=== PATIENT | male | born 1950 | race Caucasian/White ===

== ENCOUNTER 2018-07-10 11:02 | Inpatient (IN) | payer MEDICARE ==
[~2018-07-10] VITALS: Ht 170.2 cm; Wt 81.7 kg
[2018-07-10 11:40] LABS: Hematocrit 43.7 % (37.0-53.0); Hemoglobin 14.5 g/dL (13.5-17.5); Mean Corpuscular HGB 30.9 pg (26.0-34.0); Mean Corpuscular HGB Conc 33.2 g/dL (31.5-36.5); Mean Corpuscular Volume 93 fL (80-100); Mean Platelet Volume 10.1 fL (9.1-12.4); Platelet Count 398 K/mm3 (150-400); RDW Coefficient Variation 11.9 % (11.7-14.2); RDW Standard Deviation 41.2 fL (35.1-46.3); White Blood Cell Count 23.98 K/mm3 (4.00-11.30)
[2018-07-10] MEDS ORDERED: Zocor20 MG PO (11:43)
[2018-07-10] MEDS ORDERED: TRAZ150T57 PO (11:43)
[2018-07-10] MEDS ORDERED: Prinivil10 MG PO (11:43)
[2018-07-10] MEDS ORDERED: METF500 PO (11:43)
[2018-07-10] MEDS ORDERED: Budeprion Xl300 MG PO (11:44)
[2018-07-10] MEDS ORDERED: ALL DAY ALLERGY10 M1 PO (11:45)
[2018-07-10] MEDS ORDERED: BACL10 PO ×2 (11:45→14:18)
[2018-07-10 11:46] LABS: Alanine Aminotransfer (ALT/SGP 26 U/L (12-78); Albumin, Blood 2.5 g/dL (3.4-5.0); Albumin/Globulin Ratio 0.5 (0.8-1.8); Alk Phos 85 U/L (50-136); Anion Gap 21 mmol/L (6-16); Aspartate Aminotrans (AST/SGOT 14 U/L (12-37); Bilirubin, Total 0.9 mg/dL (0.1-1.0); Blood Urea Nitrogen 20 mg/dL (8-24); Bun/Creatinine Ratio 21.2 (12.0-20.0); CO2, Blood 11 mmol/L (21-32); Calcium, Blood 8.9 mg/dL (8.5-10.1); Chloride, Blood 100 mmol/L (98-108); Creatinine, Blood 0.94 mg/dL (0.60-1.20); Globulin, Blood 5.3 g/dL (2.2-4.0); Glomerular Filtration Rate >60 (60-); Glucose, Blood 452 mg/dL (70-99); Potassium, Blood 4.2 mmol/L (3.5-5.5); Sodium, Blood 132 mmol/L (136-145); Total Protein, Blood 7.8 g/dL (6.4-8.2); Troponin I <0.015 ng/mL (0.000-0.040)
[2018-07-10] MEDS ORDERED: TAMS.4ER PO ×2 (11:46→14:25)
[2018-07-10] MEDS ORDERED: GLIP5 PO (11:47)
[2018-07-10] MEDS ORDERED: Hydroxyzine HCl50 MG PO (11:48)
[2018-07-10] MEDS ORDERED: Coughtab 400400 MG PO (11:48)
[2018-07-10] MEDS ORDERED: ACET325 PO (13:58)
[2018-07-10] MEDS ORDERED: ALBU90OI61 INH (14:17)
[2018-07-10] MEDS ORDERED: BUPR150T2 PO (14:19)
[2018-07-10] MEDS ORDERED: Vitamin D2000 UNIT PO (14:20)
[2018-07-10] MEDS ORDERED: LIDO700A20 TOP (14:21)
[2018-07-10] MEDS ORDERED: LOSA25 PO (14:22)
[2018-07-10] MEDS ORDERED: OMEPRAZOLE MAGN20 MG PO (14:23)
[2018-07-10] MEDS ORDERED: Simvastatin20 MG PO (14:25)
[2018-07-10] MEDS ORDERED: TRAZ50 PO (14:26)
[2018-07-10] MEDS ORDERED: THERA1 EACH PO (14:30)
[2018-07-10] MEDS ORDERED: POTASSIUM GLUCO90 MG PO (14:32)
[2018-07-10 23:38] LABS: pH Blood Arterial 7.08 (7.35-7.45)
[2018-07-10 23:39] LABS: PCO2 Arterial 15.2 mmHg (35-45); PO2 Arterial 96.6 mmHg (80-100)
--- NOTE | 2018-07-11 00:55 | NUR ---
ASSUMED CARE OF PT FROM ED @ 2009. PT TO ROOM ON 2L NC, SATS >90%. PT ABLE TO AMBULATE INTO PCU BED WITH LITTLE ASSISTANCE FROM STAFF. PT ASKS FOR BREATHING TREATMENT, RT TO ROOM AND ADMINISTERS TREATMENT. PT BEGINS TO HAVE SEVERE PAIN IN CHEST, LOWER RIGHT. PT CLUTCHING CHEST, STATES THAT THIS PAIN IS MUCH WORSE THAN BEFORE. PT APPEARS EXTREMELY ANXIOUS, SATS NOW 85%, NC O2 TITRATED TO 8L NC. SPO2 TEETERING AT 90%. EKG ORDERED AND COMPLETED, CHARGE NURSE HELEN REVIEWED EKG STRIP, DOES NOT SEE EVIDENCE OF ST ELEVATION. NITRO GIVEN X2 POST EKG PER EMAR BEFORE HELEN REVIEWED EKG. PT STATES THAT MEDICATION DID RELIEVE SOME PAIN. DR MORALEZ CALLED REGARDING PT'S PAIN AND RESPIRATORY STATUS. DR ROOT ORDER FOR 50MCG FENTANYLY, ADMINISTERED PER ORDER. THIS RELIEVES PT'S PAIN, PATIENT STATES PAIN DROPPING FROM 10/10 TO 3/10. PT ABLE TO SPEAK IN FULL SENTENCES WITH NURSE WHEREAS BEFORE, PATIENT COULD BARELY SPEAK R/T WORK OF BREATHING/PAIN. CBG COMPLETED, LEVEL >400. INSULIN GIVEN PER EMAR. DR PINO NOTIFIED. WITHIN 30MIN OF INITIAL FENTANYL DOSAGE, PTS PAIN RAISES BACK UP TO 10/10, PT HAVING EXTREME WORK OF BREATHING. DR MORALEZ CALLED REGARDING PAIN AND RESPIRATORY STATUS. PT'S LOWER EXTREMITIES BEGINNING TO MOTTLE, PT STATES THAT LEGS HAVE GONE NUMB. ANOTHER 25MCG FENTANYL GIVEN PER ORDER FROM KIRT. DR PINO TO ROOM VIA RECOMMENDATION FROM DR MORALEZ. ALVAREZ WITH BEDSIDE ULTRASOUND. PLACES ORDER FOR BIPAP/CPAP PROTOCOL, 0.5 MG ATIVAN IV NOW AND ANOTHER 0.5MG ATIVAN PRN X1 IF PT DOES NOT TOLERATE BIPAP. ALSO ORDERS 50MCG FENTANYL. ULTIMATELY, FULL 1MG ATIVAN GIVEN IV DUE TO PATIENTS EXTREME ANXIETY AND INTOLERANCE OF BIPAP. RT OBTAINS ABG PER ORDER. COMPLETES ULTRASOUND, STATES SEEING VERY LITTLE FLUID BUILDUP IN R LUNG. DR ROOT ORDER FOR CHEST CT WITH CONTRAST AND TRANSFER ORDER TO ICU. INSULIN DRIP ORDERED R/T BLOOD SUGARS ALONG WITH SODIUM BICARB R/T TO ABG VALUES. PT TAKEN TO CT, REPORT GIVEN TO ICU NURSE, PT BROUGHT STRAIGHT FROM CT TO ICU. ALL BELONGINGS BROUGHT TO ICU WITH PT ALONG WITH MEDICATIONS.
--- NOTE | 2018-07-11 01:32 | NUR ---
ADMISSION ASSESMENT COMPLETED TO BEST OF ABILITY AND KNOWLEDGE OF PT. PT'S ADMISSION SCREENING AND HEALTH HISTORY NOT COMPLETED. PT HAS REQUIRED HIGH ACUITY OF CARE R/T PAIN AND RESPIRATORY STATUS SINCE ADMISSION AND HAS CONTINUED TO REQUIRE THIS CONSTANT INTERVENTION UNTIL TRNAFERRING TO ICU. MAJORITY OF ASSESMENTS NOT COMPLETED DUE TO THIS. ICU NURSE AWARE OF THIS.
[2018-07-11 01:57] LABS: Hematocrit 43.2 % (37.0-53.0); Hemoglobin 14.2 g/dL (13.5-17.5); Mean Corpuscular HGB Conc 32.9 g/dL (31.5-36.5); Mean Corpuscular Volume 94 fL (80-100); Mean Platelet Volume 9.7 fL (9.1-12.4); Platelet Count 440 K/mm3 (150-400); RDW Coefficient Variation 12.2 % (11.7-14.2); RDW Standard Deviation 42.6 fL (35.1-46.3); Red Blood Cell Count 4.58 M/mm3 (4.30-5.90); White Blood Cell Count 38.16 K/mm3 (4.00-11.30)
[2018-07-11 02:17] LABS: Alanine Aminotransfer (ALT/SGP 29 U/L (12-78); Albumin, Blood 2.3 g/dL (3.4-5.0); Albumin/Globulin Ratio 0.4 (0.8-1.8); Alk Phos 85 U/L (50-136); Anion Gap 21 mmol/L (6-16); Aspartate Aminotrans (AST/SGOT 22 U/L (12-37); Bilirubin, Total 0.5 mg/dL (0.1-1.0); Blood Urea Nitrogen 25 mg/dL (8-24); Bun/Creatinine Ratio 25.1 (12.0-20.0); CO2, Blood 9 mmol/L (21-32); Calcium, Blood 8.9 mg/dL (8.5-10.1); Chloride, Blood 109 mmol/L (98-108); Globulin, Blood 5.4 g/dL (2.2-4.0); Glomerular Filtration Rate >60 (60-); Glucose, Blood 458 mg/dL (70-99); Potassium, Blood 4.7 mmol/L (3.5-5.5); Sodium, Blood 139 mmol/L (136-145); Total Protein, Blood 7.7 g/dL (6.4-8.2)
[2018-07-11 02:40] LABS: BAND PERCENT MAN 5 % (0-8); BASOPHILS PERCENT MAN 0 % (0-2); EOSINOPHILS PERCENT MAN 0 % (0-6); LYMPHOCYTES ABSOLUTE MAN 0.76 K/mm3 (0.84-5.20); LYMPHOCYTES PERCENT MAN 2 % (21-46); METAMYELOCYTE ABSOLUTE MAN 0.38 K/mm3 (0.00-0.00); METAMYELOCYTE PERCENT MAN 1 % (0-0); MONOCYTES PERCENT MAN 5 % (4-13); SEG NEUTROPHILS PERCENT MAN 87 % (41-73); TOTAL CELLS COUNTED 100
[2018-07-11 04:12] LABS: Source, Urine Catheter
[2018-07-11 04:13] LABS: Bilirubin, Urine Neg (Neg); Blood, Urine 4+ (Neg); Glucose Qualitative, Urine 4+ (Neg); Ketones, Urine 4+ (Neg); Leukocyte Esterase, Urine Neg (Neg); Nitrite, Urine Neg (Neg); Protein, Urine 2+ (Neg); Urobilinogen, Urine NORM (Normal)
[2018-07-11 04:14] LABS: Appearance, Urine Clear (Clear); Color, Urine Yellow (P-Yellow)
[2018-07-11 04:19] LABS: Amorphous Mod (0-Heavy); Bacteria Rare /hpf; Red Blood Cells, Urine Rare /hpf (0-2); Squamous Epithelial Cells Rare /hpf (Few); White Blood Cells, Urine Rare /hpf (0-5)
[2018-07-11 05:28] LABS: Adenovirus Not Detected (NOT DETECT); Bordetella pertussis Not Detected (NOT DETECT); Chlamydophila pneumoniae Not Detected (NOT DETECT); Coronavirus 229E Not Detected (NOT DETECT); Coronavirus HKU1 Not Detected (NOT DETECT); Coronavirus NL63 Not Detected (NOT DETECT); Coronavirus OC43 Not Detected (NOT DETECT); Human Metapneumovirus Not Detected (NOT DETECT); Human Rhinovirus/Enterovirus Not Detected (NOT DETECT); Influenza A Not Detected (NOT DETECT); Influenza A/2009-H1 Not Detected (NOT DETECT); Influenza A/H1 Not Detected (NOT DETECT); Influenza A/H3 Not Detected (NOT DETECT); Influenza B Not Detected (NOT DETECT); Mycoplasma pneumoniae Not Detected (NOT DETECT); Parainfluenza Virus 1 Not Detected (NOT DETECT); Parainfluenza Virus 2 Not Detected (NOT DETECT); Parainfluenza Virus 3 Not Detected (NOT DETECT); Parainfluenza Virus 4 Not Detected (NOT DETECT); Respiratory Syncytial Virus Not Detected (NOT DETECT)
--- NOTE | 2018-07-11 07:06 | NUR ---
PT HAS BEEN MOVED FROM BIPAP TO SC THIS AM. PT STATES HE IS FEELING MUCH BETTER THIS MORNING. DR BANSAL CAME BY TO SEE PT. PT CONTINUES ON INSULIN DRIP WHICH HAS BEEN LOWERED TO 4 UNITS PER HOUR. CONTINUING WITH Q 1 HOUR GLUCOSE CHECKS. PT HAS NOT BEEN ABLE TO EXPECTORATE ANY SPUTUM. REPORT GIVEN TO ONCOMING RN.
--- NOTE | 2018-07-11 07:15 | NUR ---
START OF SHIFT NOTE: PATIENT IS AWAKE, SITTING UP IN BED, ALERT AND ORIENTED, VISIBLE WORK BREATHING, USE OF ACCESSORY MUSCLES, FREQUENT COUGHING SPELLS, INSULIN DRIP AT 4 UNITS, AND BICARB INFUSING AT 100 CC/HR, LUNGS SOUNDS DIMINISHED WITH CRACKLES ON LEFT AND DIMINISHED BUT CLEAR ON RIGHT, HYPERACTIVE BOWEL TONES IN ALL FOUR QUADRANTS, SINUS TACHY, PATIENT USES URINAL TO VOID, PULSES PRESENT AND PALPABLE, NPO AT THIS TIME D/T INCREASED WORK OF BREATHING, CALL LIGHT IN REACH, WILL CONTINUE TO MONITOR.
[2018-07-11 08:20] LABS: BASOPHILS ABSOLUTE AUTO 0.18 K/mm3 (0.00-0.23); BASOPHILS PERCENT AUTO 0 % (0-2); EOSINOPHILS PERCENT AUTO 0 % (0-6); Hematocrit 45.5 % (37.0-53.0); Hemoglobin 14.4 g/dL (13.5-17.5); IMMATURE GRAN ABSOLUTE AUTO 0.81 K/mm3 (0.00-0.10); IMMATURE GRAN PERCENT AUTO 2 % (0-1); LYMPHOCYTES ABSOLUTE AUTO 1.54 K/mm3 (0.84-5.20); LYMPHOCYTES PERCENT AUTO 4 % (21-46); MONOCYTES ABSOLUTE AUTO 2.35 K/mm3 (0.16-1.47); MONOCYTES PERCENT AUTO 6 % (4-13); Mean Corpuscular HGB 30.6 pg (26.0-34.0); Mean Corpuscular HGB Conc 31.6 g/dL (31.5-36.5); Mean Platelet Volume 9.8 fL (9.1-12.4); NEUTROPHILS ABSOLUTE AUTO 35.72 K/mm3 (1.96-9.15); NEUTROPHILS PERCENT AUTO 88 % (41-73); Platelet Count 475 K/mm3 (150-400); RDW Coefficient Variation 12.3 % (11.7-14.2); RDW Standard Deviation 44.2 fL (35.1-46.3)
[2018-07-11 08:22] LABS: Mean Corpuscular Volume 97 fL (80-100)
[2018-07-11 09:00] LABS: Alanine Aminotransfer (ALT/SGP 35 U/L (12-78); Albumin, Blood 2.2 g/dL (3.4-5.0); Albumin/Globulin Ratio 0.4 (0.8-1.8); Alk Phos 94 U/L (50-136); Anion Gap 12 mmol/L (6-16); Aspartate Aminotrans (AST/SGOT 84 U/L (12-37); Bilirubin, Total 0.3 mg/dL (0.1-1.0); Blood Urea Nitrogen 26 mg/dL (8-24); Bun/Creatinine Ratio 32.3 (12.0-20.0); CO2, Blood 17 mmol/L (21-32); Chloride, Blood 111 mmol/L (98-108); Creatinine, Blood 0.81 mg/dL (0.60-1.20); Globulin, Blood 5.5 g/dL (2.2-4.0); Glomerular Filtration Rate >60 (60-); Glucose, Blood 215 mg/dL (70-99); Potassium, Blood 4.2 mmol/L (3.5-5.5); Sodium, Blood 140 mmol/L (136-145); Total Protein, Blood 7.7 g/dL (6.4-8.2)
--- NOTE | 2018-07-11 09:11 | NUR ---
PATIENT'S LAST TWO BLOOD GLUCOSE RESULTS BELOW 250, ANION GAP AT 12, DR. JONES NOTIFIED, IVF CHANGED TO D5 / AT 150 CC/HR.
--- NOTE | 2018-07-11 10:21 | NUR ---
ORDERED THORACENTESIS CANNOT BE DONE D/T LOVENOX GIVEN AT 2200 LAST NIGHT, WILL NOTIFY DR. KENNY.
--- NOTE | 2018-07-11 10:38 | NUR ---
Echocardiogram using 0.45ml of Definity contrast performed.
[2018-07-11 10:40] LABS: Base Excess Venous -9.5 mmol/L; Bicarbonate Venous 17.9 mmol/L (24.0-30.0); PCO2 Venous 27.5 mmHg (38-42); PO2 Venous 39.3 mmHg (38-42); pH Blood Venous 7.37 (7.34-7.37)
[2018-07-11 10:58] LABS: International Normalized Ratio 1.14; Prothrombin Time Results 11.9 Sec (9.7-11.5)
[2018-07-11 11:23] LABS: Total Protein, Blood 7.3 g/dL (6.4-8.2)
--- NOTE | 2018-07-11 12:27 | NUR ---
PICC LINE PLACED PER DR. KENNY, PATIENT TOLERATING WELL, WILL CONTINUE TO MONITOR.
--- NOTE | 2018-07-11 12:58 | NUR ---
PATIENT UP TO CHAIR FOR LUNCH, STATED "i CAN BREATHE MUCH BETTER THIS WAY, AND I WILL TRY TO EAT SOMETHING", VSS, CALL LIGHT IN REACH, WILL CONTINUE TO MONITOR.
--- NOTE | 2018-07-11 13:29 | NUR ---
PATIENT'S SON CALLED AND WAS UPDATED ON PATIENT'S CONDITION.
--- NOTE | 2018-07-11 14:02 | NUR ---
PATIENT UP IN ROOM WITHOUT USING CALL LIGHT, WHICH IS LAYING IN HIS LAP, WHEN THIS RN RUSHED TO THE ROOM AND ASKED WHAT HE WAS DOING, THE RESPONSE WAS "I AM GOING TO THE TOILET OVER THERE", THE PATIENT IS HOOKED UP TO THE MONITOR AND HAS O2 TUBING ATTACHED TO WALL, IV POLE WAS POSITIONED BETWEEN BE, CHAIR AND TOILET, PATIENT WAS INSTRUCTED TO CALL FOR HELP, RESPONSE WAS "I DON'T LIKE TO BE TOLD TO DO THINGS, THAT I CAN DO BY MYSELF", PATIENT WAS INSTRUCTED THAT HE IS THE RESPONSIBILITY OF THE NURSING STAFF WHILE IN THE HOSPITAL, BUT TOLD THIS RN THAT "HE DID NOT LIKE TO BE HELPED AND TOLD WHAT TO DO", PATIENT WAS RETURNED TO CHAIR, AND CHAIR ALARM WAS PLACED, CALL LIGHT IN REACH, WILL CONTINUE TO MONITOR.
--- NOTE | 2018-07-11 17:49 | NUR ---
SHIFT SUMMARY NOTE: PATIENT IS AWAKE AND SITTING UP IN RECLINER CHAIR EATING DINNER, HE IS ALERT AND ORIENTED, BUT EXTREMELY ANXIOUS AND ORNERY, REFUSES TO CALL FOR HELP WHEN HE NEES TO GET UP TO BSC AND TOILET, AND REFUSES TO LISTEN TO WHY HE SHOULD CALL FOR HELP, CHAIR ALARM IN PLACE, ALSO BECAME EXTREMELY AGITATED THAT HE COULD NOT RECLINE THE CHAIR WITHOUT ASSISTANCE AND STATED "NO WONDER THIS IS A [facility] AND THEY ARE CHEAP, AT [facility] THEY LET YOU DO EVERYTHING BY YOURSELF", PATIENT IS ON 4L NC SATING IN MID 90'S, SR/ST, BOWEL TONES ARE PRESENT IN ALL FOUR QUADRANTS BUT NO BM THIS SHIFT, USES URINAL TO VOID OR UP TO TOILET WITH ASSIST, PATIENT HAS PICC IN [facility] FOR ANTIBIOTIC TREATMENT, ALL 3 LUMENS FLUSH WELL AND GOOD BLOOD RETURN NOTED, PATIENT TOOK OFF SCD'S AND REFUSES TO PUT THEM BACK ON, BLOOD SUGARS ARE IN MID 100'S TO 200'S AND COVERED WITH SHORT ACTING SLIDING SCALE, ALSO HAS LANTUS ORDERED, FOR DETAILS SEE SHIFT ASSESSMENT DOCUMENTATION AND NURSES NOTES, CALL LIGHT IN REACH, WILL CONTINUE TO MONITOR AND GIVE REPORT TO ONCOMING BLOWN FILM EXTRUSION OPERATOR.
--- NOTE | 2018-07-11 19:30 | NUR ---
ASSUMED CARE PT SITTING UP IN BED, TALKING ON PHONE. PT SPEAKING 5-6 WORD SENTENCES AND IS CLAMMY BUT REPORTS HE IS FEELING MUCH BETTER AND "I AM LEAVING TOMORROW." PT IS UPSET ABOUT BEING IN THE HOSPITAL AND ANGRY THAT HE IS NOT ALLOWED TO MOVE AROUND INDEPENDENTLY. PT EDUCATED ON SAFETY AND CONCERNS ABOUT FALLS AND STATES, "I KNOW, I KNOW." PT THEN THANKS THIS RN FOR "LETTING ME VENT." THREAD PULLER IN TO TAKE SWEATPANTS TO WASH D/T INCONTINENCE. O2 VIA NC AT 4L W/ O2 SATS LOW-MID 90'S, ECG SHOWS ST 100-115.
--- NOTE | 2018-07-11 20:08 | NUR ---
UPDATE PT ON PHONE, YELLING ABOUT LEAVING TOMORROW. STATES "I'M GONE, YOU WANNA BET KELY? I AM NOT STAYING HERE TOMORROW."
--- NOTE | 2018-07-11 23:47 | NUR ---
PT PLANS ON AMA DISCHARGE TOMORROW PT REPORTS HE HAS CALLED HIS NEIGHBOR FOR A RIDE TOMORROW. DISCUSSED AMA DISCHARGE WITH PT AND HE HAS NO CONCERNS ABOUT LEAVING. PLANS TO CALL SON RAMEZ IN [place] AND EVENTUALLY MOVE THERE.
[2018-07-12 04:26] LABS: BASOPHILS ABSOLUTE AUTO 0.06 K/mm3 (0.00-0.23); BASOPHILS PERCENT AUTO 0 % (0-2); EOSINOPHILS PERCENT AUTO 0 % (0-6); Hematocrit 37.7 % (37.0-53.0); Hemoglobin 12.9 g/dL (13.5-17.5); IMMATURE GRAN ABSOLUTE AUTO 0.28 K/mm3 (0.00-0.10); IMMATURE GRAN PERCENT AUTO 1 % (0-1); LYMPHOCYTES ABSOLUTE AUTO 0.74 K/mm3 (0.84-5.20); LYMPHOCYTES PERCENT AUTO 3 % (21-46); MONOCYTES ABSOLUTE AUTO 1.17 K/mm3 (0.16-1.47); MONOCYTES PERCENT AUTO 4 % (4-13); Mean Corpuscular HGB 30.9 pg (26.0-34.0); Mean Corpuscular HGB Conc 34.2 g/dL (31.5-36.5); Mean Platelet Volume 9.6 fL (9.1-12.4); NEUTROPHILS ABSOLUTE AUTO 24.76 K/mm3 (1.96-9.15); NEUTROPHILS PERCENT AUTO 92 % (41-73); Platelet Count 339 K/mm3 (150-400); RDW Coefficient Variation 12.3 % (11.7-14.2); RDW Standard Deviation 40.5 fL (35.1-46.3); Red Blood Cell Count 4.18 M/mm3 (4.30-5.90); White Blood Cell Count 27.01 K/mm3 (4.00-11.30)
[2018-07-12 04:29] LABS: Mean Corpuscular Volume 90 fL (80-100)
[2018-07-12 04:46] LABS: Alanine Aminotransfer (ALT/SGP 42 U/L (12-78); Albumin, Blood 1.8 g/dL (3.4-5.0); Albumin/Globulin Ratio 0.4 (0.8-1.8); Alk Phos 79 U/L (50-136); Anion Gap 9 mmol/L (6-16); Aspartate Aminotrans (AST/SGOT 67 U/L (12-37); Bilirubin, Total 0.4 mg/dL (0.1-1.0); Blood Urea Nitrogen 27 mg/dL (8-24); Bun/Creatinine Ratio 38.2 (12.0-20.0); CO2, Blood 20 mmol/L (21-32); Calcium, Blood 8.7 mg/dL (8.5-10.1); Chloride, Blood 109 mmol/L (98-108); Creatinine, Blood 0.71 mg/dL (0.60-1.20); Globulin, Blood 4.7 g/dL (2.2-4.0); Glomerular Filtration Rate >60 (60-); Glucose, Blood 322 mg/dL (70-99); Potassium, Blood 3.8 mmol/L (3.5-5.5); Sodium, Blood 138 mmol/L (136-145); Total Protein, Blood 6.5 g/dL (6.4-8.2)
--- NOTE | 2018-07-12 06:19 | NUR ---
SHIFT SUMMARY SEE PREVIOUS NOTES FOR SHIFT. PT HAS BEEN ABLE TO REST AFTER MIDNIGHT; INITIALLY ATTEMPTED TO SLEEP IN RECLINER BUT WAS FINALLY ABLE TO GET COMFORTABLE IN BED AND THIS AM REPORTS, "I FINALLY SLEPT!" VSS, ECG SHOWS SR AND O2 SATS REMAINS LOW TO MID 90'S OF 4L/NC. HUMIDITY ADDED D/T PT REPORTS OF DRY/STUFFY NOSE. PT CURRENTLY DENIES COMPLAINTS AND IS ATTEMPTING TO GO BACK TO SLEEP.
--- NOTE | 2018-07-12 07:51 | NUR ---
START OF SHIFT NOTE: PATIENT IS RESTING COMFORTABLY AND APPEARS TO BE SLEEPING, RT IN TO GIVE BREATHING TREATMENT, PATIENT AWAKES BRIEFLY TO VOCAL STIMULATION, ALERT AND ORIENTED, DENIES PAIN, AFEBRILE CONTINUES ON 4L NC WITH O2 SATS IN MID 90'S, LUNGS SOUNDS ARE COARSE AND SOME CRACKLES ON RIGHT SIDE, AND DIMINISHED ON LEFT SIDE, SR/ST, BLOOD PRESSURES WNL, BOWEL TONES AUDIBLE, PATIENT GETS UP TO TOILET TO URINATE, NEEDS SBA D/T LINES AND TUBES, PICC LINE PRESENT IN [place], FLUSHES WELL, ANBIOTICS INFUSING, BLOOD GLUCOSE AT 323 THIS AM, COVERED WITH INSULIN, PATIENT CONTINUES TO SLEEP, CALL LIGHT IN REACH, WILL CONTINUE TO MONITOR.
--- NOTE | 2018-07-12 09:23 | NUR ---
PATIENT UP TO TOILET WITH SBA, EXTREMELY SHORT OF BREATH WITH EXERTION, O2 SATURATION DROPPED INTO LOWER 80'S, RETURNED TO BED, ATE BREAKFAST, APOLOGIZED FOR AGITATED BEHAVIOR, AND TALKED ABOUT HIS FEARS AND ANXIETIES AND THAT HE HAS BIPOLAR AND SOMETIMES EXPRESSES FRUSTRATED AND AGITATED BEHAVIOR, PATIENT WAS REASSURED THAT HE IS SAFE AND WE ARE HERE TO HELP, CALL LIGHT IN REACH, WILL CONTINUE TO MONITOR.
--- NOTE | 2018-07-12 11:18 | NUR ---
PATIENT UP TO CHAIR WITH SBA, TOLERATED WELL, CALL LIGHT IN REACH, WILL CONTINUE TO MONITOR.
[2018-07-12 17:22] LABS: Automated BF RBC Count 0.025 M/mm3 (0-0); RBC Count, Body Fluid 25000 /mm3 (0-0)
[2018-07-12 17:46] LABS: Glucose, Body Fluid 132 mg/dL; Protein, Body Fluid 5.2 g/dL
--- NOTE | 2018-07-12 17:55 | NUR ---
SHIFT SUMMARY NOTE: PATIENT SLEPT WELL LAST NIGHT AND APOLOGIZED FOR BEHAVIOR FROM YESTERDAY, HOWEVER, THE DAY PROGRESSED AND THORACENTESIS WAS PUSHED BACK TO THE LATE AFTERNOON, PATIENT BECAME INCREASINGLY AGITATED AGAIN AND C/O NOT HAVING HAD FOOD AND SOMETHING TO DRINK, STATED "I AM A DIABETIC AND NEED TO DRINK", THEN THREW WATER CUP AT THIS RN, BELTRAN, FOR DETAILS SEE SHIFT ASSESSMENT DOCUMENTATION AND NURSES NOTES.
[2018-07-12 18:09] LABS: Body Fluid WBC Count 83400 /mm3 (0-999)
[2018-07-12 18:10] LABS: Color, Body Fluid Yellow (None-Yellow)
[2018-07-12 18:11] LABS: Appearance, Body Fluid Turbid (Clear)
[2018-07-12 18:46] LABS: Total Cell Count, Body Fluid 100
[2018-07-12 19:04] LABS: Lactate Dehydrogenase, Body Fl 5165 U/L
--- NOTE | 2018-07-12 19:30 | NUR ---
ASSUMED CARE OF PT. REPORT RCV'D FROM JONATHAN LE. PT ALERT AND ORIENTED SITTING UP IN A RECLINER WATCHING TV AND DRINKING WATER. PT FINISHED MOST OF HIS DINNER AND WAS LOOKING FORWARD TO GOING TO BED. PT STATES THAT HE IS FEELING BETTER AND FEELS LIKE HIS WORK OF BREATHING IS LESS. PT REMAINS ON 4L HUMIDIFIED AIR. VSS. SEE FULL SHIFT ASSESSMENT.
[2018-07-13 04:08] LABS: BASOPHILS ABSOLUTE AUTO 0.02 K/mm3 (0.00-0.23); BASOPHILS PERCENT AUTO 0 % (0-2); EOSINOPHILS PERCENT AUTO 0 % (0-6); Hematocrit 35.8 % (37.0-53.0); Hemoglobin 12.1 g/dL (13.5-17.5); IMMATURE GRAN ABSOLUTE AUTO 0.16 K/mm3 (0.00-0.10); IMMATURE GRAN PERCENT AUTO 1 % (0-1); LYMPHOCYTES ABSOLUTE AUTO 0.72 K/mm3 (0.84-5.20); LYMPHOCYTES PERCENT AUTO 4 % (21-46); MONOCYTES ABSOLUTE AUTO 0.65 K/mm3 (0.16-1.47); MONOCYTES PERCENT AUTO 3 % (4-13); Mean Corpuscular HGB 30.6 pg (26.0-34.0); Mean Corpuscular HGB Conc 33.8 g/dL (31.5-36.5); Mean Corpuscular Volume 90 fL (80-100); Mean Platelet Volume 9.6 fL (9.1-12.4); NEUTROPHILS PERCENT AUTO 92 % (41-73); Platelet Count 300 K/mm3 (150-400); RDW Coefficient Variation 12.3 % (11.7-14.2); RDW Standard Deviation 40.9 fL (35.1-46.3); Red Blood Cell Count 3.96 M/mm3 (4.30-5.90); White Blood Cell Count 18.85 K/mm3 (4.00-11.30)
[2018-07-13 04:26] LABS: Alanine Aminotransfer (ALT/SGP 47 U/L (12-78); Albumin, Blood 1.7 g/dL (3.4-5.0); Albumin/Globulin Ratio 0.4 (0.8-1.8); Alk Phos 81 U/L (50-136); Anion Gap 7 mmol/L (6-16); Aspartate Aminotrans (AST/SGOT 43 U/L (12-37); Bilirubin, Total 0.4 mg/dL (0.1-1.0); Blood Urea Nitrogen 27 mg/dL (8-24); Bun/Creatinine Ratio 39.8 (12.0-20.0); CO2, Blood 24 mmol/L (21-32); Calcium, Blood 8.6 mg/dL (8.5-10.1); Chloride, Blood 110 mmol/L (98-108); Creatinine, Blood 0.68 mg/dL (0.60-1.20); Globulin, Blood 4.3 g/dL (2.2-4.0); Glomerular Filtration Rate >60 (60-); Glucose, Blood 282 mg/dL (70-99); Sodium, Blood 141 mmol/L (136-145)
--- NOTE | 2018-07-13 05:50 | NUR ---
SHIFT SUMMARY NO ACUTE CHANGES OVERNIGHT. PT ALERT AND ORIENTED, COOPERATIVE WITH CARE. PT ABLE TO WALK TO STANDBY ASSIST. PT EXPERIENCES DYSPNEA WITH EXERTION BUT IS ABLE TO RECOVER QUICKLY. PT HAD SEVERAL SHORT RUNS OF VTACH. VSS WILL REPORT TO DAYSWYFT NURSE.
--- NOTE | 2018-07-13 08:30 | NUR ---
PT WAS TRANSFERED TO ROOM 346.
--- NOTE | 2018-07-13 13:24 | NUR ---
0700-ASSUMED CARE OF PT. PT IS ALERT AND ORIENTED. DENIES PAIN AT THIS TIME. PT IS SITTING AT THE SIDE OF THE BED. PT HAD TAKEN IS O2 OFF. 02 SATURATION ON ROOM AIR @ 96-98%. PT DENIES SHORTNESS OF BREATH AT REST BUT GETS SLIGHT SHORTNESS OF BREATH WITH ACTIVITY. 0715-PT WAS ABLE TO TRANSFER FROM THE BED TO CHAIR WITH STANDY BY ASSIST. 0748-DR. KENNY WAS CALLED REGARDING PT'S STATUS. UPDATED HER OF PT'S STATUS. PT CAN BE TRANSFERED TO ROOM 364. 0815-REPORT GIVEN TO NELI.
--- NOTE | 2018-07-13 19:35 | NUR ---
SHIFT SUMMARY PT AXO, PLEASANT AND COOPERATIVE WITH CARE. PT ARRIVED TO ROOM AT ABOUT 0843. VSS. PT ORIENTED TO ROOM. PT SHOWERED AND STATES THAT HE FEELS MUCH BETTER. NO ACUTE CHANGES THIS SHIFT. IV PATENT AND INFUSING. CALL LIGHT WITHIN REACH.
--- NOTE | 2018-07-14 06:04 | NUR ---
SHIFT SUMMARY PT HAD A HARD TIME FALLING ASLEEP LAST NIGHT, EVENTUALLY WAS ABLE TO GET A FEW HOURS OF REST. NO ACUTE CHANGES THIS SHIFT. DENIES PAIN OR NAUSEA. REPORTS OCCASIONAL DYSPNEA, SPO2 >90% ON RA, E/U RESPIRATIONS, LUNGS SOUND DIM T/O W/CRACKLES HEARD IN RT LOWER LOBE. PT HAS BEEN NPO SINCE MIDNIGHT INCASE POSSIBLE PROCEDURE TODAY. CALL LIGHT IS IN REACH.
[2018-07-14 10:28] LABS: BASOPHILS ABSOLUTE AUTO 0.03 K/mm3 (0.00-0.23); BASOPHILS PERCENT AUTO 0 % (0-2); EOSINOPHILS PERCENT AUTO 0 % (0-6); Hematocrit 39.7 % (37.0-53.0); Hemoglobin 13.5 g/dL (13.5-17.5); IMMATURE GRAN ABSOLUTE AUTO 0.17 K/mm3 (0.00-0.10); IMMATURE GRAN PERCENT AUTO 1 % (0-1); LYMPHOCYTES ABSOLUTE AUTO 1.62 K/mm3 (0.84-5.20); LYMPHOCYTES PERCENT AUTO 10 % (21-46); MONOCYTES PERCENT AUTO 5 % (4-13); Mean Corpuscular Volume 91 fL (80-100); Mean Platelet Volume 9.7 fL (9.1-12.4); NEUTROPHILS ABSOLUTE AUTO 13.03 K/mm3 (1.96-9.15); NEUTROPHILS PERCENT AUTO 83 % (41-73); Platelet Count 294 K/mm3 (150-400); RDW Coefficient Variation 12.7 % (11.7-14.2); RDW Standard Deviation 41.8 fL (35.1-46.3); Red Blood Cell Count 4.35 M/mm3 (4.30-5.90); White Blood Cell Count 15.65 K/mm3 (4.00-11.30)
--- NOTE | 2018-07-14 12:10 | NUR ---
PT TRANSPORTED VIA GURNEY TO OR FOR PROCEDURE
--- NOTE | 2018-07-14 12:12 | NUR ---
PT TRASPORTED TO SDS. LUNG SOUNDS CLEAR.
--- NOTE | 2018-07-14 14:09 | NUR ---
07/14/18 1409 Buster Hudson PATIENT ON SCHEDULED ANTIBIOTICS.
--- NOTE | 2018-07-14 17:05 | NUR ---
PT GOING TO ROOM 208, REPORT GIVEN TO ISAIAS CASTILLO ON SURGICAL FLOOR.
--- NOTE | 2018-07-14 17:38 | NUR ---
PT ARRIVED TO ROOM FROM PACU. PLACED TO WALL SUCTION. -20 H2O WATER SEAL. NO AIR LEAK DETECTED. NO CREPITUS NOTED. CHEST TUBE TO R LATERAL BACK/SIDE. SLIGHT EXPIRATORY WHEEZE NOTED ANTERIORLY. CRACKLES NOTED TO RML AND RLL. PT RESTING ON L SIDE. VSS. MEDICATED PER ORDERS FOR PAIN. TELE PLACED.
--- NOTE | 2018-07-15 06:29 | NUR ---
SUMMARY PT ABLE CONT WITH CHEST TUBE SX. SERO SANG DRNG NOTED AT DRESSING SITE LIGHT AMNT NOTED. PT DENIES SOB. REPOSITIONS SELF IN BED AND EDGE FOR VOIDING.
[2018-07-15 06:46] LABS: BASOPHILS ABSOLUTE AUTO 0.05 K/mm3 (0.00-0.23); BASOPHILS PERCENT AUTO 0 % (0-2); EOSINOPHILS ABSOLUTE AUTO 0.04 K/mm3 (0.00-0.68); EOSINOPHILS PERCENT AUTO 0 % (0-6); Hematocrit 45.3 % (37.0-53.0); Hemoglobin 14.9 g/dL (13.5-17.5); IMMATURE GRAN ABSOLUTE AUTO 0.28 K/mm3 (0.00-0.10); IMMATURE GRAN PERCENT AUTO 2 % (0-1); LYMPHOCYTES ABSOLUTE AUTO 2.13 K/mm3 (0.84-5.20); LYMPHOCYTES PERCENT AUTO 13 % (21-46); MONOCYTES ABSOLUTE AUTO 1.07 K/mm3 (0.16-1.47); MONOCYTES PERCENT AUTO 7 % (4-13); Mean Corpuscular HGB 30.3 pg (26.0-34.0); Mean Corpuscular HGB Conc 32.9 g/dL (31.5-36.5); Mean Corpuscular Volume 92 fL (80-100); Mean Platelet Volume 9.6 fL (9.1-12.4); NEUTROPHILS ABSOLUTE AUTO 12.52 K/mm3 (1.96-9.15); NEUTROPHILS PERCENT AUTO 78 % (41-73); Platelet Count 293 K/mm3 (150-400); RDW Coefficient Variation 12.9 % (11.7-14.2); RDW Standard Deviation 43.5 fL (35.1-46.3); Red Blood Cell Count 4.92 M/mm3 (4.30-5.90); White Blood Cell Count 16.09 K/mm3 (4.00-11.30)
[2018-07-15 07:02] LABS: Alanine Aminotransfer (ALT/SGP 73 U/L (12-78); Albumin, Blood 1.9 g/dL (3.4-5.0); Albumin/Globulin Ratio 0.4 (0.8-1.8); Alk Phos 106 U/L (50-136); Anion Gap 9 mmol/L (6-16); Aspartate Aminotrans (AST/SGOT 33 U/L (12-37); Bilirubin, Total 0.6 mg/dL (0.1-1.0); Blood Urea Nitrogen 15 mg/dL (8-24); Bun/Creatinine Ratio 18.6 (12.0-20.0); CO2, Blood 28 mmol/L (21-32); Calcium, Blood 8.6 mg/dL (8.5-10.1); Chloride, Blood 106 mmol/L (98-108); Creatinine, Blood 0.81 mg/dL (0.60-1.20); Glomerular Filtration Rate >60 (60-); Glucose, Blood 150 mg/dL (70-99); Potassium, Blood 3.6 mmol/L (3.5-5.5); Sodium, Blood 143 mmol/L (136-145); Total Protein, Blood 6.9 g/dL (6.4-8.2)
--- NOTE | 2018-07-15 12:23 | NUR ---
PT LEFT UNIT BY AMBULATION ACCOMPANIED BY MOTHER. MOTHER HAS POSSESSIONS AND DC PAPERWORK IN HAND.
--- NOTE | 2018-07-15 15:35 | NUR ---
pt up in chair splinting and gripping chair with right arm. Pt alert willing to review his symptoms and pain and plan of care. Symptom review with p[atient. He denies headaches or difficulty with his vision. Pt states he has significant tinnitus. He wears hearing aids and they were left at home. He states hearing loss is significant from and he is [facility] but has been denies. He has dizziness and balance distrubance. He was avoidant about fall history. Pt has many broken teeth and state he has infections in his mouth. He is saving up for dentures. We had a long discussion about dental care and getting his teeth out. P trelayed that he is stubborn and has had minimal health and dental care most of his life and will not seek help unless its absolutly necessary. He is slightly labored in his repirations , he states the pain is a little tough to vic but does not want to take medications. He has chronic back pain and has ahd back surgeries. He states he barely walks and has significan pain to left hip and shoulder with activity. He states he will just tough it out. Reviewed pain and symptom care need to just be narcotics offered other types of care. He was very pleasant but relayed he is stubborn and won't do what is suggested. He states he sits in his office chair all day on computer. States he still drives but minimal activity. Review of activity and ventilation and risk for further infection with patient. Updated nurse of conversation and affect. will update care managers pt will need supportive care if he accepts. If he goes home hope is that he will let home health or high risk COPD team see him. Will update physician. He may respond better to suggestion from physician.
--- NOTE | 2018-07-15 17:35 | NUR ---
SUMMARY NO ACUTE CHANGES T/O SHIFT. PT'S PAIN CONTROLLED PER EMAR. CHEST TUBE TO -20 CM WALL SUCTION. NO NEW DRAINAGE NOTED TO DRAIN SPONGE AROUND INSERTION SITE. CT DRAINING SS FLUID. PT TOLERATING RA. SAT UP IN CHAIR AND RECLINER MOST OF SHIFT. PLEASANT AND COOPERATIVE.
--- NOTE | 2018-07-15 17:53 | NUR ---
TURNING OVER CARE TO JONATHAN CHEEK.
--- NOTE | 2018-07-15 18:08 | NUR ---
ASSUMED CARE OF PT. PT SITTING IN CHAIR EATING DINNER WATCHING TV. DENIES ANY C/O PAIN OR SOB. CHEST TUBE IN PLACE TO WALL SUCTION. DRESSING CDI. CALL LIGHT IN REACH.
[2018-07-16 05:01] LABS: BASOPHILS ABSOLUTE AUTO 0.08 K/mm3 (0.00-0.23); BASOPHILS PERCENT AUTO 1 % (0-2); EOSINOPHILS ABSOLUTE AUTO 0.11 K/mm3 (0.00-0.68); EOSINOPHILS PERCENT AUTO 1 % (0-6); Hematocrit 41.2 % (37.0-53.0); Hemoglobin 13.7 g/dL (13.5-17.5); IMMATURE GRAN ABSOLUTE AUTO 0.55 K/mm3 (0.00-0.10); IMMATURE GRAN PERCENT AUTO 3 % (0-1); LYMPHOCYTES PERCENT AUTO 18 % (21-46); MONOCYTES ABSOLUTE AUTO 1.14 K/mm3 (0.16-1.47); MONOCYTES PERCENT AUTO 7 % (4-13); Mean Corpuscular HGB 30.3 pg (26.0-34.0); Mean Corpuscular HGB Conc 33.3 g/dL (31.5-36.5); Mean Corpuscular Volume 91 fL (80-100); Mean Platelet Volume 9.8 fL (9.1-12.4); NEUTROPHILS ABSOLUTE AUTO 11.81 K/mm3 (1.96-9.15); NEUTROPHILS PERCENT AUTO 71 % (41-73); Platelet Count 281 K/mm3 (150-400); RDW Coefficient Variation 12.6 % (11.7-14.2); RDW Standard Deviation 41.6 fL (35.1-46.3); Red Blood Cell Count 4.52 M/mm3 (4.30-5.90); White Blood Cell Count 16.59 K/mm3 (4.00-11.30)
[2018-07-16 05:20] LABS: Anion Gap 7 mmol/L (6-16); Blood Urea Nitrogen 15 mg/dL (8-24); CO2, Blood 27 mmol/L (21-32); Calcium, Blood 8.7 mg/dL (8.5-10.1); Chloride, Blood 107 mmol/L (98-108); Creatinine, Blood 0.71 mg/dL (0.60-1.20); Glomerular Filtration Rate >60 (60-); Glucose, Blood 157 mg/dL (70-99); Potassium, Blood 3.5 mmol/L (3.5-5.5); Sodium, Blood 141 mmol/L (136-145)
--- NOTE | 2018-07-16 06:48 | NUR ---
shift summary: vss, no acute changes, spo2 remained >90% on RA, no SOB. while lying flat, pt stated once t/o shift he felt "difficulty breathing", this RN elevated head of bed with resolution of difficulty. pt states pain controlled per mar with 2-4/10 at the chest tube site. pt tolerated PO intake with no N/V. Passing flatus, urine output >500 ml. pt remained a/o x 4, pleasant/cooperative. chest tube remained fluctuation/air bubbles, no air leak, 120 ml out serosanguinous fluid with occasional clot
--- NOTE | 2018-07-16 10:13 | NUR ---
CHEST TUBE CANISTER REPLACED AT THIS TIME USING STERILE TECHNIQUE PT REPORTED THAT HE ACCIDENTALLY "KNOCKED IT OVER". CHEST TUBE SITE CDI. CHEST TUBE TO SUCTION AT -20CM PER ORDERS. NO S/S DISTRESS NOTED.
--- NOTE | 2018-07-16 16:43 | NUR ---
SHIFT SUMMARY NO ACUTE CHANGES THIS SHIFT. VSS. PT DOING WELL RESPIRATORY JOE. HAS GOOD COUGH EFFORT. ON RA. CHEST TUBE NOW TO WATER SEAL INSTEAD OF WALL SUCTION. 2 NORCO FOR PAIN. WORKING WITH PT/OT. NOW, INDEP IN ROOM WITH CHEST TUBE. IV SL. KATHERIN ADA DIET. CALL LIGHT WITHIN REACH.
--- NOTE | 2018-07-16 21:19 | NUR ---
provider communication MARIELENA Jay notifed at 2118 pt's blood sugar 444 tonight; 25 units of Lantus ordered on emar; Med SS of Humalog not ordered for HS. Order to cover with ss, 12 units Humalog recieved.
[2018-07-17 03:30] LABS: BASOPHILS ABSOLUTE AUTO 0.05 K/mm3 (0.00-0.23); BASOPHILS PERCENT AUTO 0 % (0-2); EOSINOPHILS ABSOLUTE AUTO 0.19 K/mm3 (0.00-0.68); EOSINOPHILS PERCENT AUTO 2 % (0-6); Hematocrit 37.4 % (37.0-53.0); Hemoglobin 12.5 g/dL (13.5-17.5); IMMATURE GRAN ABSOLUTE AUTO 0.47 K/mm3 (0.00-0.10); IMMATURE GRAN PERCENT AUTO 4 % (0-1); LYMPHOCYTES ABSOLUTE AUTO 2.45 K/mm3 (0.84-5.20); LYMPHOCYTES PERCENT AUTO 19 % (21-46); MONOCYTES ABSOLUTE AUTO 0.85 K/mm3 (0.16-1.47); MONOCYTES PERCENT AUTO 7 % (4-13); Mean Corpuscular HGB 30.9 pg (26.0-34.0); Mean Corpuscular HGB Conc 33.4 g/dL (31.5-36.5); Mean Corpuscular Volume 93 fL (80-100); NEUTROPHILS PERCENT AUTO 69 % (41-73); Platelet Count 247 K/mm3 (150-400); RDW Coefficient Variation 12.7 % (11.7-14.2); RDW Standard Deviation 42.8 fL (35.1-46.3); Red Blood Cell Count 4.04 M/mm3 (4.30-5.90); White Blood Cell Count 12.91 K/mm3 (4.00-11.30)
--- NOTE | 2018-07-17 04:29 | NUR ---
SHIFT SUMMARY PT A&O X4 T/O SHIFT. 3 DAYS POST THRASOSCOPIC DECORTICATION/R LATERAL CHEST TUBE PLACEMENT; CT TO WATERSEAL. NO CRETITIS NOTED. DRAINAGE ON DRESSING UNCHANGED, INTACT. LS DIM RS. RA; TX PER RT. PT DENIES SOB. SLIGHT INCREASE IN WOB NOTED WITH ACTIVITY. PAIN MANAGED PER EMAR. PT INDEPENDENT IN ROOM. BLOOD GLUCOSE MANAGED PER EMAR/PROVIDER ORDERS. EDU ON DVT PREVENTION; PT DECLINED SCD'S. PT UP IN RECLINER AT THIS TIME. CALL LIGHT IN REACH; PT DEMONSTRATES USE. WCTM UNTIL REPORT TO DAY SHIFT RN.
--- NOTE | 2018-07-17 11:07 | NUR ---
DR. TRAN AND DARIN IN TO ROUND ON PT. DR. TRAN REMOVED CHEST TUBE. PT TOLERATED WELL. PLAN IS TO GET A REPEAT CHEST XRAY AND IF RESULTS ARE GOOD, PT WILL DISCHARGE HOME LATER TODAY.
--- NOTE | 2018-07-17 13:30 | NUR ---
ASSUMED CARE OF PATIENT AT THIS TIME. AWAITING DR TRAN TO CHECK CXR. D/C ORDERS ON CHART FROM DR AMEZCUA. PATIENT IS A [facility], LIVES IN [place], NO RIDE HOME. MONALISA Ardon CONTACTED TO ARRANGE RIDE HOME.
[2018-07-17] MEDS ORDERED: ASPI81CH PO (14:34)
[2018-07-17] MEDS ORDERED: Augmentin 875-1 EACH PO (14:35)
[2018-07-17] MEDS ORDERED: Humalog Mi100 UNIT/4 INJ (14:37)
[2018-07-17] MEDS ORDERED: INSULANPEN SC (14:42)
[2018-07-17] MEDS ORDERED: PRED20 PO (14:44)
[2018-07-17] MEDS ORDERED: Florastor250 MG PO (14:45)
[2018-07-17] MEDS ORDERED: Humalog100 UNIT/3 INJ (14:51)
[2018-07-17] MEDS ORDERED: ALBU90OI6 INH (14:52)
--- NOTE | 2018-07-17 15:50 | NUR ---
PATIENT D/C'D TO HOME VIA [facility]AX[facility] AT THIS TIME. TRANSPORT ARRANGED BY D/C BALLISTICS TEACHER. RX FAXED TO [facility] (PATIENT TO CHANCELLOR TAWANNA THAYER.) IV LINE/PICC D/C'D BY CN. PATIENT STATES UNDERSTANDING OF INSULINS, MEDS, WOUND CARE, F/U APPTS, ETC. DENIES PAIN OR OTHER C/O AT THIS TIME.
== END 2018-07-17 15:30 | disposition home or self-care (01) | DRG 853 ==
LOC: ER 11:02 → MEDS 13:47 → ERHOLD 13:47 → ICUE 13:47 → PCU 20:36 → ICUE 07-11 00:29 → MEDS 07-13 08:37 → SURS 07-14 17:25
PROVIDERS: Emergency Medicine; Internal Medicine; Internal Medicine Critical Care Medicine; ADMIT Family Medicine
PROC: 5A09357 Assistance with Respiratory Ventilation, Less than 24 Consecutive Hours, Continuous Positive Airway Pressure (ICD-10-PCS; principal; 2018-07-11)
PROC: 02H633Z Insertion of Infusion Device into Right Atrium, Percutaneous Approach (ICD-10-PCS; 2018-07-11)
PROC: 0W993ZZ Drainage of Right Pleural Cavity, Percutaneous Approach (ICD-10-PCS; 2018-07-12)
PROC: 0BNK0ZZ Release Right Lung, Open Approach (ICD-10-PCS; 2018-07-14)
PROC: 0W9900Z Drainage of Right Pleural Cavity with Drainage Device, Open Approach (ICD-10-PCS; 2018-07-14)
DX: A40.1 Sepsis due to streptococcus, group B (principal); J18.1 Lobar pneumonia, unspecified organism; J96.21 Acute and chronic respiratory failure with hypoxia; E11.10 Type 2 diabetes mellitus with ketoacidosis without coma; J86.9 Pyothorax without fistula; E87.1 Hypo-osmolality and hyponatremia; J98.11 Atelectasis; E87.2 Acidosis; Z87.891 Personal history of nicotine dependence; K21.9 Gastro-esophageal reflux disease without esophagitis; N40.0 Benign prostatic hyperplasia without lower urinary tract symptoms; I08.3 Combined rheumatic disorders of mitral, aortic and tricuspid valves; J30.9 Allergic rhinitis, unspecified; Z77.090 Contact with and (suspected) exposure to asbestos; G89.29 Other chronic pain; M54.9 Dorsalgia, unspecified; J43.9 Emphysema, unspecified; K76.0 Fatty (change of) liver, not elsewhere classified; R91.1 Solitary pulmonary nodule; Z66 Do not resuscitate; Z95.5 Presence of coronary angioplasty implant and graft; Z79.82 Long term (current) use of aspirin; K08.9 Disorder of teeth and supporting structures, unspecified; Z79.4 Long term (current) use of insulin; I10 Essential (primary) hypertension
CPT/HCPCS: 32555; 36415; 36569; 36600; 71045; 71046; 71260; 80048; 80053; 81001; 82803; 82945; 82947; 83036; 83605; 83615; 83690; 83880; 84145; 84155; 84157; 84484; 85025; 85610; 85730; 87040; 87070; 87075; 87205; 87486; 87581; 87633; 87798; 88108; 89051; 93005; 93010; 94640; 94660; 94760; 94762; 96361; 96365; 96375; 97161; 97165; 97530; 97535; 99285-25; A9270-GY; C1751; C8929; J0330; J0456; J0696; J1170; J1650; J1815; J1956; J2060; J2250; J2370; J2405; J2543; J2704; J2920; J2930; J3010; J7030; J7042; J7050; J7120; J7512; Q9957; Q9967